=== PATIENT | female | born 1995 | race Caucasian/White ===

== ENCOUNTER 2018-12-31 13:58 | Outpatient (CLI) | payer BC ==
[2018-12-31 14:26] LABS: Anion Gap 15 mmol/L (10-20); BUN (Urea Nitrogen) 7 mg/dL (7.0-18.7); Calc. Creatinine Clearance 0 mL/min (70-130); Calcium 9.7 mg/dL (7.8-10.44); Carbon Dioxide 26 mmol/L (22-29); Chloride 102 mmol/L (98-107); Estimated GFR-MDRD 76; Glucose 196 mg/dL (70-105); Potassium 3.8 mmol/L (3.5-5.1); Sodium 139 mmol/L (136-145)
--- NOTE | 2018-12-31 15:26 | CT ---
CT ABDOMEN AND PELVIS WITHOUT CONTRAST: DATE: 12/31/2018. PROVIDED CLINICAL HISTORY: Renal calculi. FINDINGS: Comparison is made with the study dated 03/27/2017. The visualized lung bases are free of significant opacity. A 1-2 mm nonobstructing inferior pole rig ht renal calculus. No additional urinary tract calculi are evident. The solid abdominal organs are suboptimally evaluated in the absence of IV contrast material but demo nstrate an otherwise unremarkable unenhanced CT appearance. There is no bowel dilatation, inflammatory fat stranding, free fluid, or lymph node enlargement appar ent. The osseous structures demonstrate no concerning lytic or blastic lesions. IMPRESSION: A 1-2 mm nonobstructing inferior pole right renal calculus. POS: [facility]
== END 2018-12-31 13:59 | disposition home or self-care (01) ==
LOC: SCSCT 13:58
PROVIDERS: ATTEND Urology
DX: N20.0 Calculus of kidney (principal); R35.0 Frequency of micturition; R10.9 Unspecified abdominal pain
CPT/HCPCS: 36415; 74176; 80048